=== PATIENT | male | born 2000 | race Caucasian/White ===

== ENCOUNTER 2019-12-09 21:08 | Inpatient (IN) ==
[2019-12-09 21:47] LABS: Basophils % 0.3 %; Eosinophils # 0.1 K/mcL (0.0-0.6); Eosinophils % 0.5 %; Hematocrit 45.4 % (37.5-50.1); Hemoglobin 15.4 g/dL (12.9-16.9); Immature Granulocytes % 0.3 % (0-4); Lymphocytes # 2.4 K/mcL (0.6-4.6); Lymphocytes % 21.9 %; Mean Corpuscular HGB Conc 33.9 g/dL (31.6-35.5); Mean Corpuscular Hemoglobin 29.8 pg (28.0-33.3); Mean Platelet Volume 9.6 fL (9.4-12.4); Monocytes # 0.9 K/mcL (0.0-1.3); Monocytes % 8.3 %; Neutrophils # 7.5 K/mcL (1.6-8.9); Platelet Count 308 K/mcL (140-400); Red Blood Count 5.16 M/mcL (4.19-5.50); Red Cell Distribution Width 12.6 % (11.5-14.5); Segmented Neutrophils % 68.7 %
[2019-12-09 22:05] LABS: Acetaminophen < 10 mcg/mL (10-20); BUN/Creatinine Ratio 12 (6-26); Blood Urea Nitrogen 10 mg/dL (6-20); Calcium 10.3 mg/dL (8.6-10.3); Carbon Dioxide 25 mEq/L (23-29); Chloride 104 mEq/L (98-107); Chol/HDL Ratio 3.4 (0-4.9); Cholesterol 126 mg/dL (< 200); Ethanol < 10 mg/dL (Less than 10); Glucose 113 mg/dL (70-105); HDL Cholesterol 37 mg/dL (40-59); LDL Cholesterol,Calculated 75 mg/dL (< 100); Osmolality,Calculated 286 (280-300); Potassium 3.4 mEq/L (3.5-5.1); Salicylate < 2.5 mg/dL (15.0-30.0); Sodium 138 mEq/L (136-145); Triglycerides 68 mg/dL (< 150); eGFR For African Americans > 60 (> 60); eGFR For Non-African Americans > 60 (> 60)
[2019-12-09 22:05] LABS: Bilirubin,Urine Negative (Negative); Blood,Urine Negative (Negative); Clarity,Urine Clear (Clear); Color,Urine Yellow (Yellow); Glucose,Urine (UA) Normal (Normal); Ketones,Urine Trace mg/dL (Negative); Leukocyte Esterase,Urine Negative (Negative); Nitrite,Urine Negative (Negative); Protein,Urine Trace mg/dL (Neg-Trace); Specific Gravity,Urine 1.027 (1.010-1.025)
[2019-12-09 22:14] LABS: Estimated Average Glucose 114 mg/dl
[2019-12-09 22:16] LABS: Amphetamine Screen,Urine Negative ng/mL (Cutoff=1000); Barbiturate Screen,Urine Negative ng/mL (Cutoff=200); Benzodiazepines Screen,Urine Negative ng/mL (Cutoff=200); Cannabinoid Screen,Urine Negative ng/mL (Cutoff = 50); Cocaine Screen,Urine Negative ng/mL (Cutoff= 300); Opiate Screen,Urine Negative ng/mL (Cutoff=300); Phencyclidine Screen,Urine Negative ng/mL (Cutoff=25)
[2019-12-09] MEDS ORDERED: QUEtiapine Fumarate 25 MG TABLET PO ONE (23:40)
[2019-12-10] MEDS ORDERED: *HR* LORazepam 2 MG/ML VIAL IM PRN (10:36)
[2019-12-10] MEDS ORDERED: haloperidoL 5 MG TABLET PO PRN (10:36)
[2019-12-10] MEDS ORDERED: Mag Hydrox/Al Hydrox/Simeth 30 ML UDC PO PRN (10:36)
[2019-12-10] MEDS ORDERED: Haloperidol Lactate 5 MG/ML VIAL IM PRN (10:36)
[2019-12-10] MEDS ORDERED: MOM Conc 10 ML UD.LIQ PO PRN (10:36)
[2019-12-10] MEDS ORDERED: Acetaminophen 325 MG TABLET PO PRN (10:36)
[2019-12-10] MEDS ORDERED: *HR* LORazepam 1 MG TABLET PO PRN (10:36)
[2019-12-10] MEDS ORDERED: haloperidoL 5 MG TABLET PO ONE (10:37)
[2019-12-10] MEDS ORDERED: *HR* LORazepam 1 MG TABLET PO ONE (10:38)
[2019-12-10] MEDS: RisperiDONE-M 1 MG TAB.RAPDIS PO SCH (20:41)
[2019-12-10] MEDS: hydrOXYzine pamoate 25 MG CAPSULE PO PRN (20:41)
[2019-12-11] MEDS: RisperiDONE-M 1 MG TAB.RAPDIS PO SCH ×2 (08:53→20:57)
[2019-12-11] MEDS: hydrOXYzine pamoate 25 MG CAPSULE PO PRN ×2 (08:53→20:57)
[2019-12-11] MEDS: QUEtiapine Fumarate 25 MG TABLET PO PRN (20:57)
[2019-12-12] MEDS: RisperiDONE-M 1 MG TAB.RAPDIS PO SCH ×2 (09:30→20:40)
[2019-12-12] MEDS: hydrOXYzine pamoate 25 MG CAPSULE PO PRN (20:40)
[2019-12-12] MEDS: QUEtiapine Fumarate 25 MG TABLET PO PRN (20:40)
[2019-12-13] MEDS: RisperiDONE-M 1 MG TAB.RAPDIS PO SCH ×2 (09:14→20:03)
[2019-12-13] MEDS ORDERED: PALIPERIDONE PALMITATE 234 MG/1.5 ML SYRINGE IM SCH (10:30)
[2019-12-14] MEDS: RisperiDONE-M 1 MG TAB.RAPDIS PO SCH (08:34)
[2019-12-14] MEDS: hydrOXYzine pamoate 25 MG CAPSULE PO PRN (20:18)
[2019-12-14] MEDS: QUEtiapine Fumarate 25 MG TABLET PO PRN (20:18)
[2019-12-15] MEDS: hydrOXYzine pamoate 25 MG CAPSULE PO PRN (21:48)
[2019-12-15] MEDS: QUEtiapine Fumarate 25 MG TABLET PO PRN (21:48)
[2019-12-16] MEDS: QUEtiapine Fumarate 25 MG TABLET PO PRN (21:59)
[2019-12-17] MEDS ORDERED: PALIPERIDONE PALMITATE 156 MG/ML SYRINGE IM SCH (09:00)
[2019-12-17] MEDS: QUEtiapine Fumarate 25 MG TABLET PO PRN (21:01)
[2019-12-17] MEDS: hydrOXYzine pamoate 25 MG CAPSULE PO PRN (21:01)
[2019-12-18 09:01] VITALS: BP 125/77
== END 2019-12-18 15:35 | disposition home or self-care (01) | DRG 750 ==
LOC: EMEROOARM 21:08 → 1ANU 12-10 10:33
PROVIDERS: ADMIT Psychiatry & Neurology Psychiatry; ATTEND Psychiatry & Neurology Psychiatry